=== PATIENT | female | born 1950 | race Caucasian/White ===

== ENCOUNTER 2019-03-01 23:38 | Emergency (ER) | payer OTHER, MEDICAID ==
[2019-03-02] MEDS: ONDANSETRON (ODT) 4 MG TAB ODT (04:10)
[2019-03-02] MEDS: MECLIZINE 12.5 MG TAB PO (04:10)
== END 2019-03-02 04:53 | disposition home or self-care (01) ==
LOC: FTE 03-02 04:53
DX: R42 Dizziness and giddiness (principal); I10 Essential (primary) hypertension
CPT/HCPCS: 99283